=== PATIENT | male | born 1995 | race Hispanic/Latino ===

== ENCOUNTER 2019-05-08 01:39 | Emergency (ER) | payer OTHER, SELFPAY ==
[2019-05-08] MEDS ORDERED: Ketorolac Tromethamine 30 MG/ML VIAL ONE (01:57)
[2019-05-08] MEDS ORDERED: Ondansetron PF 4 MG/2 ML Vial ONE (02:03)
[2019-05-08 02:15] LABS: Hemoglobin 14.3 g/dL (14.0-18.0); Mean Corpuscular HGB CONC 32.1 g/dL (32.0-36.0); Mean Corpuscular Hemoglobin 27.8 pg (27.0-31.0); Mean Corpuscular Volume 86.7 fL (78.0-98.0); Mean Platelet Volume 12.3 fL (7.4-10.4); Platelet Count 187 thou/uL (130-400); RBC Distribution Width 12.2 % (11.5-14.5); Red Blood Cell (RBC) Count 5.14 mill/uL (4.70-6.10); White Blood Cell (WBC) Count 11.2 thou/uL (4.8-10.8)
[2019-05-08 02:24] LABS: ALT (SGPT) 54 U/L (8-55); AST (SGOT) 29 U/L (5-34); Albumin 4.2 g/dL (3.5-5.0); Alkaline Phosphatase 94 U/L (40-110); Anion Gap 13 mmol/L (10-20); BUN (Urea Nitrogen) 15 mg/dL (8.9-20.6); Bilirubin, Total 0.2 mg/dL (0.2-1.2); Calc. Creatinine Clearance 0 mL/min (70-130); Calcium 9.4 mg/dL (7.8-10.44); Carbon Dioxide 26 mmol/L (22-29); Chloride 108 mmol/L (98-107); Estimated GFR-MDRD 82; Glucose 117 mg/dL (70-105); Lipase 33 U/L (8-78); Potassium 3.8 mmol/L (3.5-5.1); Protein, Total 7.2 g/dL (6.0-8.3); Sodium 143 mmol/L (136-145)
[2019-05-08 02:27] LABS: #Basophils 0.2 thou/uL (0.0-0.2); #Eosinphils 0.4 thou/uL (0.0-0.7); #Lymphocytes 3.3 thou/uL (1.20-3.40); #Monocytes 0.9 thou/uL (0.11-0.59); #Neutrophils 6.4 thou/uL (1.40-6.50); %Basophils 1.6 % (0.0-1.0); %Eosinophils 4.2 % (0.0-10.0); %Lymphocytes 29.1 % (21.0-51.0); %Monocytes 7.6 % (0.0-10.0); %Neutrophils 57.4 % (42.0-75.0); Platelet Morphology Comment Appears Adequate; RBC Morphology Normal
[2019-05-08 02:29] LABS: MDiff Complete? YES; Manual Diff?? NO
[2019-05-08 02:42] LABS: Bilirubin Negative (Negative); Blood, Urine Large (Negative); Clarity Cloudy (Clear); Glucose, Urine (Dipstick) Negative (Negative); Leukocyte Negative (Negative); Nitrite Negative (Negative); Protein, Urine (Dipstick) > or equal to 300 mg/dL (Neg-Trace); Urobilinogen 0.2 mg/dL (Less than 2)
[2019-05-08 02:52] LABS: RBC/HPF Greater than 50 HPF (0-3); Squamous Epithelial 0-3 HPF (0-3); WBC/HPF 0-3 HPF (0-3)
[2019-05-08 02:53] LABS: Mucous/LPF 1+ LPF (<2+)
--- NOTE | 2019-05-08 07:17 | CT ---
PRELIMINARY REPORT/[facility]/EMERGENCY AFTER HOURS PROCEDURE: PROCEDURE INFORMATION: Exam: CT Abdomen and pelvis without contrast Exam date and time: 05/08/2019 2:10 AM Clinical history: 24 years old, male; Abdominal pain; Patient HX: Right flank pain, nausea TECHNIQUE: Imaging protocol: Computed tomography of the abdomen and pelvis without contrast. Radiation optimization: All CT scans at this facility use at least one of these dose optimization marsha hniques: automated exposure control; mA and/or kV adjustment per patient size (includes targeted exam s where dose is matched to clinical indication); or iterative reconstruction. COMPARISON: No relevant prior studies available. FINDINGS: Lungs: The lung bases are clear. Liver: Unremarkable. Gallbladder and bile ducts: No definite gallbladder abnormality by CT. No biliary tree dilation. Pancreas: Unremarkable. Spleen: Unremarkable. Adrenals: Unremarkable. Kidneys and ureters: Small right intrarenal calculus. Mild right hydronephrosis and hydroureter. There is a 3 mm distal right ureteral calculus, at the UVJ. The calculus is probably in the intramura l portion of the distal ureter. It is possible that it has already been passed into the urinary bladd er. Please correlate clinically. Small left lower pole intrarenal calculus. The left kidney otherwise appears essentially unremarkable. Stomach and bowel: There are no CT findings to strongly suggest diverticulitis. Appendix: The appendix is visualized and appears normal. Intraperitoneal space: No free air, ascites, or bowel distention. Vasculature: No evidence for abdominal aortic aneurysm. Lymph nodes: No retroperitoneal adenopathy. Bladder: Suspect mild to moderate diffuse urinary bladder wall thickening. Evaluation is somewhat vasquez ited, as the bladder is not well distended. While nonspecific, this could indicate evidence for cysti tis. Please correlate clinically. Reproductive: Essentially unremarkable for age. Bones/joints: No significant acute finding. Soft tissues: No significant acute finding. IMPRESSION: 1. 3 mm distal right ureteral calculus, details above. 2. Mild right hydronephrosis and hydroureter. 3. Bilateral intrarenal calculi. 4. Suspected urinary bladder wall thickening, see above. 5. Normal appendix. 6. Other findings discussed above. Thank you for allowing us to participate in the care of your patient. Dictated and Authenticated by: Jose Tipton MD 05/08/2019 3:06 AM Central Time ([place] & [place]) FINAL REPORT CT ABDOMEN AND PELVIS WITHOUT CONTRAST: Date: 05/08/[address] of the abdomen and pelvis was performed for evaluation of right flank pain. Tiny renal calculi are present in each kidney. There is a 3 mm calculus present in the distal right u reter at the UVJ causing very mild right hydronephrosis. The exam was otherwise unremarkable. The lung bases are clear. The liver, spleen, pancreas, gallbladd er, adrenal glands, and abdominal aorta were normal in appearance. There was no distention of bowel; however, the thickness of the wall of the colon seems mildly but di ffusely increased. I do not know if the patient has any GI tract symptoms, but this might be kept in mind should he have such apart from the urinary tract findings. The appendix is identified and appear s normal. No free air or free fluid was present. CT of the pelvis shows distal right ureteral calculus at the UVJ. There is some slight thickening of the urinary bladder wall, but it is not very distended, so the finding is of questionable significanc e. IMPRESSION: 1. 3.0 mm distal right ureteral calculus at the UVJ causing mild right hydronephrosis. 2. Tiny nonobstructing bilateral renal calculi. 3. Question of some thickening of the colonic wall throughout the entirety of the colon. Correlate w ith clinical symptoms and follow-up as needed. Report in agreement with preliminary reading by Gloria. POS: HOME
== END 2019-05-08 03:15 | disposition home or self-care (01) ==
LOC: BURERS 01:39
DX: N13.2 Hydronephrosis with renal and ureteral calculous obstruction (principal); F17.210 Nicotine dependence, cigarettes, uncomplicated; Z79.899 Other long term (current) drug therapy
CPT/HCPCS: 74176; 80053; 81003; 81015; 83690; 85025; 96361; 96374; 96375; J1885; J2405